=== PATIENT | male | born 1955 | race Caucasian/White ===

== ENCOUNTER → 2021-01-28 | Outpatient (CLI) | payer OTHER | LOC: KOH-I 11:08 | DX: M25.552 Pain in left hip (principal); M25.551 Pain in right hip; M16.0 Bilateral primary osteoarthritis of hip | CPT/HCPCS: 73522 ==

== ENCOUNTER → 2021-05-09 | Outpatient (CLI) | payer OTHER | LOC: KOH-I 12:38 | DX: U07.1 COVID-19 (principal); Z86.16 Personal history of COVID-19; R91.8 Other nonspecific abnormal finding of lung field | CPT/HCPCS: 71046 ==

== ENCOUNTER → 2021-08-12 | Outpatient (CLI) | payer MEDICARE, OTHER | LOC: KOH-I 12:39 | DX: M25.512 Pain in left shoulder (principal); M19.012 Primary osteoarthritis, left shoulder; M25.712 Osteophyte, left shoulder | CPT/HCPCS: 73030 ==

== ENCOUNTER → 2021-10-13 | Outpatient (CLI) | payer MEDICARE, OTHER | LOC: HEART 5 13:40 | DX: R06.02 Shortness of breath (principal) | CPT/HCPCS: 94060; 94729 ==

== ENCOUNTER → 2022-01-30 | Outpatient (CLI) | payer BC, OTHER | LOC: KOH-I 01-29 11:30 | DX: R93.7 Abnormal findings on diagnostic imaging of other parts of musculoskeletal system (principal); R91.8 Other nonspecific abnormal finding of lung field | CPT/HCPCS: 71250 ==

== ENCOUNTER 2022-03-03 11:14 | Observation (INO) | payer BC, OTHER ==
[~2022-03-03] VITALS: Ht 180.3 cm; Wt 96.2 kg
[2022-03-03 12:44] LABS: HEMOGLOBIN 17.7 gm/dl (14.0-17.5); RED BLOOD COUNT 5.35 M/UL (4.20-5.50); WHITE BLOOD COUNT 6.1 K/UL (4.5-11.0)
[2022-03-03 13:01] LABS: BUN/CREATININE RATIO 17 (0-10)
[2022-03-03] MEDS ORDERED: GABAPENTIN600 MG PO (14:27)
[2022-03-03] MEDS ORDERED: PROAIR HFA8.5 GM INH (14:28)
[2022-03-03] MEDS ORDERED: IBU800 MG PO (14:28)
[2022-03-03] MEDS ORDERED: SYNTHROID100 MCG PO (14:28)
[2022-03-03] MEDS ORDERED: ROPINIROLE HCL1 MG PO (14:28)
[2022-03-03] MEDS ORDERED: ASPIRIN EC81 MG PO (14:29)
[2022-03-03] MEDS ORDERED: VITAMIN B-121000 MCG PO (14:29)
[2022-03-03] MEDS ORDERED: MECLIZINE HCL25 MG PO (14:29)
[2022-03-03] MEDS ORDERED: VITAMIN D325 MC6 PO (14:29)
[2022-03-04 06:40] LABS: HEMOGLOBIN 16.1 gm/dl (14.0-17.5); RED BLOOD COUNT 4.92 M/UL (4.20-5.50); WHITE BLOOD COUNT 5.5 K/UL (4.5-11.0)
[2022-03-04 07:02] LABS: BUN/CREATININE RATIO 20 (0-10)
== END 2022-03-04 11:25 | disposition home or self-care (01) ==
LOC: ER1 11:14 → CDU 14:16 → M/S 15:56
PROVIDERS: Emergency Medicine; Physician Assistant Medical; ADMIT Internal Medicine
DX: R07.89 Other chest pain (principal); I25.10 Atherosclerotic heart disease of native coronary artery without angina pectoris; Z86.16 Personal history of COVID-19; K21.9 Gastro-esophageal reflux disease without esophagitis; E03.9 Hypothyroidism, unspecified; E78.5 Hyperlipidemia, unspecified; I10 Essential (primary) hypertension; E53.8 Deficiency of other specified B group vitamins; C67.9 Malignant neoplasm of bladder, unspecified; I25.2 Old myocardial infarction; Z79.82 Long term (current) use of aspirin; Z79.890 Hormone replacement therapy; Z79.899 Other long term (current) drug therapy; Z95.1 Presence of aortocoronary bypass graft; Z95.5 Presence of coronary angioplasty implant and graft
CPT/HCPCS: 36415; 71045; 80048; 80053; 82550; 82553; 83735; 83880; 84484; 85025; 85027; 85379; 93005; 99285; G0378